=== PATIENT | female | born 2000 | race Caucasian/White ===

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

== ENCOUNTER → 2023-02-25 07:49 | Outpatient (CLI) | payer BC, SELFPAY ==
--- NOTE | ~2023-02-25 | US_ITS ---
Limited Abdominal Sonogram: Real-time sonographic imaging of the right upper quadrant was performed. Clinical History: Abdominal pain Findings: The liver appears normal with no evidence of mass lesion or bile duct dilatation. Main por kali vein demonstrates normal direction of flow. The gallbladder is well distended, and appears normal with no evidence of gallstone or wall thickening. The common bile duct measures 4 mm. The visualize d pancreas, aorta, and IVC are unremarkable. Impression: No significant abnormality seen. Reviewed, dictated and finalized at location . Impression: No significant abnormality seen.
== END ==
PROVIDERS: PCP Nurse Practitioner Family; Visit Provider Nurse Practitioner Family
DX: R10.11 Right upper quadrant pain (principal)
CPT/HCPCS: 76705

== ENCOUNTER 2025-03-22 12:47 | Emergency (ER) | payer BC, SELFPAY ==
--- OUTSIDE RECORDS SUMMARY | 2024-01-16 16:30 | XMS_ITS ---
Author Organization [facility] ([address]) Address [address] [place] [address] Care Team Providers Care Buckshot Swage Operator Name Role Phone Cata Clark Primary Care Provider Cande Heidy Villa Unavailable [phone] [facility], Provider Unavailable Unavailab le Allergies Allergen (clinical drug ingredient) Drug/Non Drug Allergy documented on EMR Reaction Allergy Type Onset Date Status azithromycin Azithromycin hives on chest and abdomen after taking for a few days Drug Allergy Active omeprazole PriLOSEC hives the same day Drug Allergy Active REASON FOR VISIT [facility] To [facility] Conversion Encounter Medications Medication SIG (Take, Route, Frequency, Duration) Notes Start Date End Date Status Prazosin HCl 1 MG 1 cap(s) orally 3 times a day; Duration: 30 day(s) takes one capsule @ HS Active Rizatriptan Benzoate 5 MG 1 tab(s) orally once a day uses PRN Active FLUoxetine HCl 20 MG 1 cap(s) orally onc e a day; Duration: 30 day(s) Active Verapamil HCl 40 MG 1 tab(s) orally 3 times a day; Duration: 30 day(s) one pill daily Active Encounters Encounter Location Date Provider Diagnosis [facility] [place] [address] 01/16/2024 Provider ZZ-Migration Plan Of Treatment No Information Progress Notes * Olinda FORTEOB:[birth year] (24 yo F)Acc No.[id number]:01/16/2024 Patient: Joanie VIEYRA Provider: Mary Ledesma :2000 A ge:23 Y S ex:Female Date:01/16/2024 Address:[address], [place], [id number] Pcp:Cata Davidson, ANP-BC Subjective: * Chief Complaints: * [facility] * Medical History: * Medications: T aking Prazosin HCl 1 MG Capsule 1 cap(s) orally 3 times a day , Notes to Pharmacist: takes one capsule @ HS, Taking FLUoxetine HCl 20 MG Capsule 1 cap(s) orally once a day , Taking Verapamil HCl 40 MG Tablet 1 tab(s) orally 3 times a day , Notes to Pharmacist: one pill daily, Taking Rizatriptan Benzoate 5 MG Tablet 1 tab(s) orally once a day , Notes to Pharmacist: uses PRN * Allergies: A zithromycin: hives on chest and abdomen after taking for a few days, PriLOSEC: hives the same day. Objective: * Vitals: Assessment: Plan: * Treatment: * Billing Information: * Visit Code: * Procedure Codes: * Electronic signature of Prov jaimer [facility]-Migration on 03/22/2025 at 01:56 PM CDT Sign off status: Pending * Provider: Mary Ledesma Date: 01/16/2024 Generated for Neris huggins/Steve/Kannan on: 0 03/22/2025 01:56 PM CDT
--- OUTSIDE RECORDS SUMMARY | 2024-03-09 10:40 | XMS_ITS ---
Author Organization [facility] ([address]) Address [address] [place] [address] Care Team Providers Care Prop Cutter Name Role Phone Cata Clark Primary Care Provider Cande Heidy Villa Unavailable [phone] Cheng Reyes [phone] Encounters Encounter Location Date Provider Diagnosis [address] [place] [address] 03/09/2024 Cheng Reyes Plan Of Treatment No Information Progress Notes * Olinda FORTEOB:[birth year] (24 yo F)Acc No.[id number]:03/09/2024 [facility]-Aeroallergen Patient: Joanie VIEYRA Provider: Mray Reyes MD :2000 A ge:23 Y S ex:Female Date:03/09/2024 Address[address], [id number] Pcp:EDY Watson Subjective: * Chief Complaints: * * Medical History: Objective: * Vitals: Assessment: Plan: * Treatment: * Billing Information: * Visit Code: * Procedure Codes: * Electronic signature of Luann Reyes MD, FAAAAI on 03/22/2025 at 12:55 PM CDT Sign off status: Pending * Provider: Mary Reyes MD Date: 0 03/09/2024 Generated for Neris huggins/Steve/Elidaitting on: 0 03/22/2025 12:55 PM CDT
--- OUTSIDE RECORDS SUMMARY | 2025-03-22 12:56 | XMS_ITS | Clinical Summary ---
Author Organization [facility] Address [address] [place] [address] Phone Care Team Providers Care Minute Clerk For Basic Traffic Name Role Phone Unavailable Primary Care Provider Unavailabl e Allergies Active Allergy Reactions Criticality Noted Date Comments Azithromycin Hives High 03/29/2018 Latex Rash Low 06/11/2022 Metoclopramide Hcl Other (See Comments) Low 024 akathisia Omeprazole Hives,Rash High 05/13/2018 Prochlorperazine Other (See Comments) 4 Akathisia Medications levonorgestreL (MIRENA) 20 mcg/24 hours (8 yrs) 52 mg IUD 1 Active rimegepant (Nurtec ODT) 75 mg Tablet, Rapid Dissolve Take 1 Tablet (75 mg) by mouth 1 time daily as needed for Pain. 8 Tablet 3 4 Active FLUoxetine (PROzac) 40 mg capsule Take 20 mg by mouth daily. 4 Active atogepant (Qulipta) 60 mg Tablet Take 1 Tablet (60 mg) by mouth daily. 30 Tablet 5 4 Active Additional Information Patient not taking.Reported on 03/07/2025 magnesium oxide 400 mg magnesium Capsule Take 400 mg by mouth daily at bedtime. Active cholecalciferol , vitamin D3, 5,000 unit Take 5,000 Units by mouth daily at bedtime. Active ondansetron (ZOFRAN ODT) 4 mg Tablet, Rapid Dissolve Take 1 Tablet (4 mg) by mouth every 8 hours as needed for Nausea/Emesis. 20 Tablet 5 5 Active Hospital, Clinic, or Other Facility Administered Medication Ordered Dose Route Frequency Start Date End Date Status onabotulinumtoxinA (BOTOX) injection 200 UnitsIndications:Ch ronic migraine w/o aura w/o status migrainosus, not intractable 200 Units Intradermal EVERY 90 DAYS 10/28/2023 Active Active Problems Problem Noted Date Diagnosed Date Status migrainosus 05/05/2024 Migraine aura, persistent, intractable 4 Other specified congenital deformities of hip Tear of right acetabular labrum 02/29/2024 Allergic contact dermatitis due to adhesives 01/2022 Chronic rhinitis 07/09/2022 Migraine with aura and witho ut status migrainosus, not intractable 04/28/2022 Chronic tension-type headache, not intractable 0 04/28/2022 PTSD (post-traumatic stress disorder) 01/01/2022 COVID-19 08/20/2021 Degenerative tear of acetabular labrum of right hip 05/21/2021 Overview (10/13/2022): Added automatically from request for surgery [id number] Right hip pain 05/21/2021 Overview (01/20/2023): Added automatically from request for surgery [id number] Last Assessment & Plan: Hx hip dysplasia, dx [address] 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 Overview (01/20/2023): Added automatically from request for surgery [id number] Periumbilical abdominal pain 05/01/2018 Palpitations Encounters Date Type Department Care Team Description 03/08/2025 External Device Data STL ABSTRACTION Provider, Abstract 03/08/2025 Results Follow-Up [facility] [place] [place] [id number] [address] Abbey Cotton, JUSTICE VAGINOSIS/VAGINITIS PANEL PLUS 03/07/2025 4:00 PM CDT Office Visit [facility] [address] [facility] [address] [place] [id number] Abbey Cotton NP Vaginal discharge (Primary Dx); Routine screening for STI (sexually transmitted infection); Vaginal dryness 02/15/2025 External Device Data STL ABSTRACTION Provider, Abstract 01/10/2025 External Device Data STL ABSTRACTION Provider, Abstract 01/06/2025 10:00 AM CDT Procedure visit [facility] [address] [facility] [address] [place] [address] Velvet Card NP Chronic migraine w/o aura w/o status migrainosus, not intractable (Primary Dx); Migraine with aura and without status migrainosus, not intractable 01/02/2025 Telephone [facility] [address] [address] [facility] [address] [place] [address] Velvet Card NP Botox converstation ins 12/30/2024 Telephone [facility] [address] [address] [facility] [address] [place] [address] Velvet Card, JUSTICE Med Refill 12/23/2024 External Device Data STL ABSTRACTION Provider, Abstract from Last 3 Months Immunizations Immunization Administration Dates Next Due (ACTHIB/HIBERIX)(2 MOS-5 YRS /6 WKS-4 YRS) HAEMOPHILUS INFLUENZAE TYPE B VACCINE (HIB), PRP-T CONJUGATE, 4 DOSE, 0.5 ML IM 04/28/2003,05/10/2002,03/14/2002,01/10 (ADACEL/BOOSTRIX)(10 YR UP) TDAP VACCINE, 0.5ML, IM 02/13/2023,02/17/2020,04/06/2013 (DAPTACEL)(6 WKS-6 YRS) DIPH THERIA, TETANUS TOXOIDS, AND ACCELLULAR PERTUSSIS VACCINE (DTAP), 0.5ML, IM 11/09/2006,04/28/2003,05/10/2002,03/14,01/10/2002 (GARDASIL 9)(9-45 YRS) HUMAN PAPILLOMAVIRUS VACCINE, TYPES 6, 11, 16, 18, 31, 33, 45, 52, 58, NONAVALENT (9VHPV), 2 OR 3 DOSE, IM 01/10/2016,08/22/2015 (GARDASIL)(9-45 YRS) HUMAN PAPILLOMAVIRUS VACCINE, TYPES 6, 11, 16, 18, QUADRIVALENT (4VHPV), 3 DOSE, IM 07/17/2014,07/07/2014 (HAVRIX/VAQTA)(12 MO-18 YRS) HEPATITIS A VACCINE 0.5 ML PED/ADOL 2 DOSE, IM 08/22/2015,07/07/2014 (IPOL)(6 WKS AND UP) POLIOVI SVETLANA VACCINE, INACTIVATED (IPV), 3 DOSE, SUBCUT OR IM 02/17/2020,11/09/2006,01/27/2003,03/14,01/10/2002 (M-M-R II/PRIORIX)(12 MO UP) MEASLES, MUMPS AND RUBELLA VIRUS VACCINE, 0.5 ML IM/SUBCUT 11/09/2006,11/14/2002 (MENACTRA)(9 MO-55 YR) MENIN GOCOCCAL POLYSACCHARIDE A, C, Y AND W-135 DIPTHERIA TOXOID CONJUGATE VACCINE, (PF), 0.5ML, IM 02/17/2020,03/07/2019,07/17/2014 (PREVNAR 13)(6 WKS UP) PNEUM OCOCCAL CONJUGATE (PCV13) 0.5 ML, IM 11/14/2002,07/11/2002,05/10/2002,02/11 (RECOMBIVAX HB/ENGERIX-B)(0- 19 YRS) HEPATITIS B VACCINE 5 MCG/0.5 ML OR 10 MCG/0.5 ML PED OR ADOL 3 DOSE (PF), IM 02/22/2020,08/11/2002,2001,11/02 (VARIVAX)(12 MOS UP)VARICELL A VIRUS VACCINE (PF) 0.5 ML, SUB CUT 02/22/2020,11/09/2006,05/29/2003,01/27 Adenovirus Vaccine Type 4 02/22/2020 Hepatitis A Vaccine, Unspeci fied Formulation 07/17/2014 INFLUENZA VACCINE QUADRIVALE NT 6 MOS UP CELL DERIVED PF IM 05/26/2022 INFLUENZA VACCINE TRIVALENT SPLIT VIRUS, (6 MOS UP), 0.5ML (PF), IM 05/11/2024 Influenza Seasonal Unspecifi ed Formulation IM 05/15/2023,06/13/2021 Family History Medical History Relation Name Comments Defects Brother 1 Edwin AV canal defec t Thyroid Disease Brother 1 Edwin Hypothyroidi sm Defects Brother 2 Edwin AV canal defec t Thyroid Disease Brother 2 Edwin Hypothyroidi sm Headaches Maternal Grandmother Camryn Anxiety Mother Adrianna Depression Mother Adrianna Headaches Mother Adrianna Hypertension Mother Adrianna Thyroid Disease Mother Adrianna Hypothyroidi sm Relation Name Status Comments Brother 1 Edwin Brother 2 Edwin Alive Maternal Grandmother Camryn Alive Mother Adrianna Alive Social History Tobacco Use Types Packs/Day Years Used Date Smoking Tobacco: Never Smokeless Tobacco: Never Tobacco Cessation:Counseling Given: Not Answered Alcohol Use Standard Drinks/Week Comments Yes 3 (1 standard drink = 0.6 oz pur e alcohol) Comments No Sex and Gender Information Value Date Recorded Sex Assigned at Not on file Legal Sex Female 9:34 AM CDT Gender Identity Not on file Sexual Orientation Not on file Last Filed Vital Signs Vital Sign Reading Time Taken Comments Blood Pressure 124/70 03/07/2025 3:46 PM CDT Pulse 83 01/06/2025 10:03 AM CDT Temperature 37.7 C (99.8 F) 05/11/2024 3:54 PM CDT Respiratory Rate 18 05/11/2024 3:54 PM CDT Oxygen Saturation 96% 01/06/2025 10:03 AM CDT Inhaled Oxygen Concentration - - Weight 84 kg (185 lb 3.2 oz) 03/07/2025 3:46 PM CDT Height 167.6 cm (5' 6) 03/07/2025 3:46 PM CDT Body Mass Index 29.89 03/07/2025 3:46 PM CDT Plan of Treatment Upcoming Encounters Date Type Department Care Team (Late st Contact Info) Description 03/23/2025 11:00 AM CDT Office Visit [facility] [address] [address] [facility] [address] [place] [address] Kaylah Alcazar MD [address] [facility] [address] [place] [address] 03/31/2025 2:00 PM CDT Procedure visit [facility] [address] [facility] [address] [place] [address] Velvet Card, JUSTICE [address] [facility] [address] [place] [address] 06/23/2025 10:00 AM BRUSH OR BROOM CUTTER Procedure visit [facility] [address] [facility] [address] [place] [address] Carmella Curry, ABEL [address] [facility] [address] [place] [address] 10/16/2025 9:15 AM CDT Office Visit [facility] [address] [facility] [address] [place] [address] Abbey Cotton, JUSTICE [address] [facility] [address] [place] [address] Health Maintenance Due Date Last Done Comments HPV/Cotest (21-) 2022 INFLUENZA VACCINE (#1) 2025 , 05/15/2023, 05/26/2022, Additional history exists CHLAMYDIA SCREENING (ANNUAL) 11-24 YEARS 03/07/2026 03/07/2025 CERVICAL CANCER SCREENING 10/08/2026 PAP SMEAR 10/08/2026 10/09/2023 DTAP/TDAP/TD VACCINES (9 - T d or Tdap) 02/13/2033 02/13/2023, 02/17/2020, 04/06/2013, Additional history exists HPV VACCINES Completed 01/10/2016, 08/04, 07/17/2014, Additional history exists HEPATITIS B VACCINES Completed 02/22/2020, 08/11/2002, 2001, Additional history exists COVID-19 Vaccine Completed 04/18/2024, , 05/02/2021 Procedures Procedure Name Priority Date/Time Associated Diagnosis Comments VAGINOSIS/VAGINITIS PANEL PLUS Routine 03/07/2025 4:14 PM CDT Vaginal discharge Routine screening for STI (sexually transmitted infection) [place] CHEMODERVATE FACIAL/TRIGEM/CERV MUSC MIGRAINE Routine 01/06/2025 10:34 AM CDT Chronic migraine w/o aura w/o status migrainosus, not intractable CERV/VAG CYTO AGE BASED SCREEN PAP W CT/NG, TRICH Routine 10/09/2023 10:01 AM BRUSH OR BROOM CUTTER Encounter for gynecological examination without abnormal finding from Last 3 Months or Most Recently Relevant to Health Maintenance Results * VAGINOSIS/VAGINITIS PANEL PLUS (03/07/2025 4:14 PM CDT) BACTERIAL VAGINOSIS NEGATIVE NEGATIVE [facility] TOSIN SPECIES NOT DETECTED NOT DETECTED [facility] TOSIN GLABRATA NOT DETECTED NOT DETECTED [facility] Comment: Tosin species C. albicans, C. tropicalis, C. parapsilosis, and/or C. dubliniensis can be detected, but not differentiated, in the Tosin spp. result. TRICHOMONAS VAGINALIS (TV), TMA NOT DETECTED NOT DETECTED [facility] CHLAMYDIA TRACHOMATIS RNA, TMA, UROGENITAL NOT DETECTED NOT DETECTED [facility] NEISSERIA GONORRHOEAE RNA, TMA, UROGENITAL NOT DETECTED NOT DETECTED [facility] Comment: For additional information, please refer to https://education.Fundación Bases/faq/CHW846 (This link is being provided for information/ educational purposes only.) Test Performed at: [email or web address] [address] [place] [address] Gisele Maloney MD Genital SPECIMEN FROM VAGINA / Unknown 03/07/2025 4:14 PM CDT 03/08/2025 5:57 AM CDT Abbey Cotton NP MICROBIOLOGY - GENERAL ORDERABLES Final Result [facility] [phone] [facility] [address] [place] [address] * [place] CHEMODERVATE FACIAL/TRIGEM/CERV MUSC MIGRAINE (01/06/2025 10:34 AM CDT) Narrative Velvet Card NP - 01/06/2025 10:34 AM CDT Velvet Card NP 01/06/2025 10:38 AM Botox Procedure Note Patient: Joanie Forte / 24 y.o. / female : 2000 BP 112/68 (BP Location: Left arm, Patient Position (BP): Sitting, BP Cuff Size: Adult) Pulse 83 SpO2 96% Procedure Performed: Botox for Chronic Migraine without Aura Date of Service: 01/06/2025 Provider: Velvet Card NP Medical Necessity for Procedure: This patient has a history of intractable headache present for 15 or more days per month, at least 8 of which lasting for more than 4 hours a day and meeting migraine criteria for at least 3 months. They have tried at least 2 migraine prophylaxis medications. It is medically necessary to proceed with Botulinum toxin A injections per PREEMPT protocol in order to optimize this patient's treatment plan that will result in improved level of functioning and quality of life. Past Medical History: Past Medical History: Diagnosis Date Anemia February 2020 Anxiety 2018 COVID-19 virus detected 08/20/2021 08/20/2021 Depression December 2021 (PTSD)- resolved Migraine with aura 2020 Patient denies relevant medical history Supporting Evidence for the Treatment's Effectiveness: BOTOX was evaluated in two randomized, multi-center, 24-week, 2 injection cycle, placebo-controlled double-blind studies. Study 1 and Study 2 included chronic migraine adults who were not using any concurrent headache prophylaxis, and during a 28-day baseline period had >15 headache days lasting 4 hours or more, with >50% being migraine/probable migraine. In both studies, patients were randomized to receive placebo or 155 Units to 195 Units BOTOX injections every 12 weeks for the 2-cycle, double-blind phase. Patients were allowed to use acute headache treatments during the study. BOTOX treatment demonstrated statistically significant and clinically meaningful improvements from baseline compared to placebo for smith efficacy variables (see Table 31). Patients treated with BOTOX had a significantly greater mean decrease from baseline in the frequency of headache days at most timepoints from Week 4 to Week 24 in Study 1 (Figure 11), and all timepoints from Week 4 to Week 24 in Study 2 (Figure 12), compared to placebo-treated patients. Diagram of Injection sites: Procedure Details: The patient was educated about the risks and benefits of the procedure prior to starting. The patient signed a form showing they received informed consent. Then the patient was given Botox as follows: OnabotulinumtoxinA-Botox 200 units (lot # [id number]; expiration 05/29 ) was reconstituted using 4 ml preservative free saline to a final concentration of 50 units/ml. Using 1 ml syringes with 30 gauge 0.5 inch needles, and aseptic technique, Botox was administered as follows: Muscle # units Right # of inj sites Right # units Left # of inj sites Left Total units De Icer Finisher 5 1 5 1 10 Procerus 5 Frontalis 10 2 10 2 20 Temporalis 20 4 20 4 40 Occipitalis 15 3 15 3 30 Cervical Paraspinal 10 2 10 2 20 Trapezius 15 3 15 3 30 TOTAL units injected 155 Units wasted 45 Each injection was preceded by negative aspiration for blood. Patient tolerated the procedure well. Post-injection care instructions reviewed and patient discharged in good and stable condition. Medications Administered This Visit: Administrations This Visit onabotulinumtoxinA (BOTOX) injection 155 Units Admin Date 01/06/2025 Action Given Dose 155 Units Route IM Documented By Velvet Card NP sodium chloride bacteriostatic 0.9 % injection 2-4 mL Admin Date 01/06/2025 Action Given Dose 4 mL Route See Admin Instructions Documented By Velvet Card NP Were there any complications during this procedure or following previous Botox procedures for Chronic Migraine?: No Treatment Plan: Continue Botox every 12 weeks Follow up assessment will be scheduled with Dr. Alcazar 03/2025 Velvet Card NP Velvet Card NP PROCEDURE/MINOR MOTT RGICAL ORDERABLES Final Result * CERV/VAG CYTO AGE BASED SCREEN PAP W CT/NG, TRICH (10/09/2023 10:01 AM BRUSH OR BROOM CUTTER) COMMENT (PAP): [facility] Comment: This order for age-based cervical cancer and STI screening follows ACOG guidelines(PB 168, 140, AAH160). See individual assays for performing site location. CLINICAL INFORMATION [facility] Comment:SCREENNING LAST MENSTRUAL PERIOD [facility] Comment:NONE GIVEN PREV PAP: [facility] Comment:NONE GIVEN PREV BX: [facility] [place] Comment:NONE GIVEN SOURCE [facility] Comment:Endocervix ADEQUACY: [facility] Comment: Satisfactory for evaluation. Endocervical/transformation zone component present. Age and/or menstrual status not provided PAP INTERP [facility] Comment: Cytology Results: Negative for intraepithelial lesion or malignancy. CYTOLOGY INFECTION [facility] Comment: Fungal organisms morphologically consistent with Tosin spp. COMMENT (PAP TEST) [facility] [place] Comment: This Pap test has been evaluated with computer assisted technology. SPRING TACKER: Tessa [facility] [place] Comment: PORTER CT(ASCP) CT screening location: [place] [address] [address] REVIEW SPRING TACKER: Ovidio [place] Comment: LISE COSTELLO(ASCP) CT screening location: [place] [address] [place] [address] EXPLANATORY NOTE [facility] [place] Comment: EXPLANATORY NOTE: The Pap is a screening test for cervical cancer. It is not a diagnostic test and is subject to false negative and false positive results. It is most reliable when a satisfactory sample, regularly obtained, is submitted with relevant clinical findings and history, and when the Pap result is evaluated along with historic and current clinical information. C TRAC RNA NOT DETECTED NOT DETECTED [facility] N.GONORRHOEAE RNA, TMA NOT DETECTED NOT DETECTED [facility] COMMENT INFECTIOUS DISEASE [facility] Comment: The analytical performance characteristics of this assay, when used to test SurePath(TM) specimens have been determined by [facility]. The modifications have not been cleared or approved by the FDA. This assay has been validated pursuant to the CLIA regulations and is used for clinical purposes. For additional information, please refer to https://Mu Dynamics.[employer]/faq/AWQ109 (This link is being provided for information/ educational purposes only.) TRICHOMONAS VAGINALIS,QUALITAT ANGELY,PAP VIAL NOT DETECTED NOT DETECTED [facility] Comment: The analytical performance characteristics of this assay have been determined by [facility]. The modifications have not been cleared or approved by the FDA. This assay has been validated pursuant to the CLIA regulations and is used for clinical purposes. For additional information, please refer to http://[employer]/ faq/Trichomonastma (This link is being provided for information/ educational purposes only.) Test Performed at: [facility] [address] [facility] [place] [address] Gisele CAO Genital SWAB OF ENDOCERVIX / Unknown 10/09/2023 10:01 AM BRUSH OR BROOM CUTTER 10/12/2023 4:42 AM CDT Abbey Cotton NP PATHOLOGY/CYTOLOGY ZACARIAS LOMBARDI Final Result [facility] [phone] [facility] [address] [place] [address] from Last 3 Months or Most Recently Relevant to Health Maintenance Insurance BCBS OUT OF STATE RX [employer] Commercial RX [employer] Commercial Advance Directives For more information, please contact: [phone] * Full Code (Latest Code Status on File) Date Activated Date Inactivated Comments 05/04/2024 11:26 AM 05/11/2024 8:23 PM * Full Code Date Activated Date Inactivated Comments 05/07/2018 9:45 AM 05/07/2018 2:39 PM
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
--- OUTSIDE RECORDS SUMMARY | 2025-03-22 12:56 | XMS_ITS | Clinical Summary ---
Author Organization [facility] Address [address] [place] [address] Care Team Providers Care Tunnel Kiln Firer Name Role Phone Yolanda Chapin FINISHER CARD TENDER Primary Care Provider [phone] Allergies Active Allergy Reactions Criticality Noted Date Comments Azithromycin Hives 03/31/2019 Latex Rash Low 01/17/2023 Omeprazole Hives 03/31/2019 Medications FLUoxetine (PROZAC) 20 MG capsule Take 30 mg by mouth daily. Active prazosin (MINIPRESS) 1 MG capsule Take 1 capsule (1 mg total) by mouth nightly at bedtime. Active Social History Tobacco Use Types Packs/Day Years Used Date Smoking Tobacco: Never Smokeless Tobacco: Never Alcohol Use Standard Drinks/Week Comments No 0 (1 standard drink = 0.6 oz pur e alcohol) AUDIT-C Answer Date Recorded Frequency of Alcohol Consumption Never 03/31/2019 Average Number of Drinks Not on file 019 Frequency of Binge Drinking Not on file 03/04 Comments No Sex and Gender Information Value Date Recorded Sex Assigned at Not on file Legal Sex Female 7:51 PM CDT Gender Identity Not on file Sexual Orientation Not on file Last Filed Vital Signs Vital Sign Reading Time Taken Comments Blood Pressure 120/62 01/17/2023 7:29 PM CDT Pulse 80 01/17/2023 7:29 PM CDT Temperature 36.9 C (98.5 F) 01/17/2023 7:29 PM CDT Respiratory Rate 16 01/17/2023 5:22 PM CDT Oxygen Saturation 98% 01/17/2023 7:29 PM CDT Inhaled Oxygen Concentration - - Weight 72.6 kg (160 lb) 01/17/2023 5:22 PM CDT Height 167.6 cm (5' 6) 01/17/2023 5:22 PM CDT Body Mass Index 25.82 01/17/2023 5:22 PM CDT Plan of Treatment Health Maintenance Due Date Last Done Comments Cervical Cancer Screening Pap Smear (Age 21 to 29) Every 3 Years 2001 Cervical Cancer Screening 2001 Annual Physical 2004 Meningococcal B Vaccine (1 of 2 - Standard) 2017 Hepatitis C 11/03/2019 DTaP, Tdap and Td Vaccines (7 - Td or Tdap) 04/06/2023 04/06/2013, 11/09/2006, 04/28/2003, Additional history exists COVID-19 Vaccine () 04/03/2024 Hepatitis B Vaccines Completed 08/11/2002, 2001, 2001 Pneumococcal Vaccine: Pediatrics (0 to 5 Years) and At-Risk Patients (6 to 49 Years) Completed 11/14/2002, 07/11/2002, 05/10/2002, Additional history exists HPV Vaccines Completed 01/10/2016, 08/04, 07/17/2014, Additional history exists Meningococcal Vaccine Completed 03/07/2019, 014 RSV Immunizations Under 20 Months Aged Out No longer eligible based on patient's age to complete this topic Insurance [facility] Care Teams Tunnel Kiln Firer Relationship Specialty Start Date End Date Yolanda Chapin FNP PCP - General Nurse Practitioner Family 01/17/23
--- OUTSIDE RECORDS SUMMARY | 2025-03-22 12:56 | XMS_ITS | Patient Health Record ---
Author Organization [facility] [place] ([address]) Address [address] [place] [address] Care Team Providers Care Ice Rink Attendant Name Role Phone Cata Clark Primary Care Provider Heidy Martinez Unavailable [phone] Allergies Allergen (clinical drug ingredient) Drug/Non Drug Allergy documented on EMR Reaction Allergy Type Onset Date Status azithromycin Azithromycin hives on chest and abdomen after taking for a few days Drug Allergy Active omeprazole PriLOSEC hives the same day Drug Allergy Active Reason For Referral No Information Medications Medication SIG (Take, Route, Frequency, Duration) Notes Start Date End Date Status Prazosin HCl 1 MG 1 cap(s) orally 3 times a day; Duration: 30 day(s) takes one capsule @ HS Active RIZATRIPTAN 5 mg 1 tab(s) orally once a day uses PRN Active VERAPAMIL 40 mg 1 tab(s) orally 3 times a day; Duration: 30 day(s) one pill daily Active FLUOXETINE 20 mg 1 cap(s) orally once a day; Duration: 30 day(s) Active PRAZOSIN 1 mg 1 cap(s) orally 3 times a day; Duration: 30 day(s) takes one capsule @ HS Active Rizatriptan Benzoate 5 MG 1 tab(s) orally once a day uses PRN Active FLUoxetine HCl 20 MG 1 cap(s) orally onc e a day; Duration: 30 day(s) Active Verapamil HCl 40 MG 1 tab(s) orally 3 times a day; Duration: 30 day(s) one pill daily Active Problems Problem Type SNOMED Code ICD Code Onset Dates Problem Status W/U Status Risk Notes Problem Chronic rhinitis (43238182) Chronic rhinitis (J31.0) Active confirmed Problem Allergic contact dermatitis caused by adhesive (disorder) (939591084) Allergic contact dermatitis due to adhesives (L23.1) Active confirmed Problem 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) (6209160655) Latex allergy status (Z91.040) Active confirmed Problem Allergy status to other antibiotic agents (Z88.1) Active confirmed Plan Of Treatment Pending Test Test Name Order Date LATEX (K82) IGE 05/22/2022 Insurance Providers Payer Name Payer Address Payer Phone Subscriber Number Group Number Insured Name Patient Relationship to Insured Coverage Start Date Coverage End Date [place] [address] [place] [address] [id number] Ruddy Forte Child - Insured has Financial Responsibility Medical (General) History Medical History History ICD Code migraines anxiety PTSD/insomnia Surgical History Surgery Date(Month/Year) Tonsillectomy/adenoidectomy 07/03/2004 [place] teeth extraction 08/05/2015 Left hip arthroscopy 12/03/2020 Right hip arthroscopy 10/07/2021
--- OUTSIDE RECORDS SUMMARY | 2025-03-22 12:56 | XMS_ITS | Clinical Summary ---
Author Organization [facility] Address [address] [facility] [place] [address] Care Team Providers Care Geophysical Data Technician Name Role Phone Unavailable Primary Care Provider Unavailabl e Source Comments [email or web address],non-owned Affiliates and Associated Physician Practices is amultiple site organization consisting of ambulatory clinics and hospital sitesin [place], [place], [place]. This disclosure is being madepursuant to the Care Everywhere program and may not contain all information available regarding this patient. Last updated 18.[email or web address] Social History Tobacco Use Types Packs/Day Years Used Date Smoking Tobacco: Never Assessed Comments Unknown Sex and Gender Information Value Date Recorded Sex Assigned at Not on file Legal Sex Female 5:42 AM ARTERIAL EMBALMER Gender Identity Not on file Sexual Orientation Not on file Plan of Treatment Health Maintenance Due Date Last Done Comments HIV SCREENING 2016 HPV VACCINE (1 - 3-dose series) 2016 CHLAMYDIA/GONORRHEA SCREENING 2017 MENINGOCOCCAL (Group B) VACCINE SHARED DECISION-MAKING (1 of 2 - Standard) 2017 HEPATITIS C SCREENING 10/29/2019 DTAP/TDAP/TD VACCINES (1 - Tdap) 2020 HEPATITIS B VACCINE (1 of 3 - 19+ 3-dose series) 2020 PAP SMEAR 2022 COVID-19 VACCINE (1 - 2023- season) 2024 DEPRESSION SCREENING 08/03/2024 INFLUENZA VACCINE (#1) 2025 , 05/15/2023, 05/26/2022, Additional history exists ZOSTER VACCINE (1 of 2) 11/03/2051 HIB VACCINE Aged Out No longer eligi ble based on patient's age to complete this topic MENINGOCOCCAL GROUPS A/C/Y/W VACCINE Aged Out No longer eligible based on patient's age to complete this topic PNEUMOCOCCAL VACCINE Aged Out No long er eligible based on patient's age to complete this topic
--- NOTE | 2025-03-22 13:33 | PC.NURSE ---
Patient reporting that she took her migraine medication and her symptoms are resolving-she also has an appointment with her Neurologist tomorrow so she is going home now
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
--- OUTSIDE RECORDS SUMMARY | 2025-03-22 13:56 | XMS_ITS | Clinical Summary ---
Author Organization [facility] Address [address] [place] [address] Care Team Providers Care Piano Teacher Name Role Phone Yolanda Chapin PREPARED FOODS ASSOCIATE Primary Care Provider [phone] Allergies Active Allergy Reactions Criticality Noted Date [...] patient's age to complete this topic Insurance [facility] Care Teams Piano Teacher Relationship Specialty Start Date End Date Yolanda Chapin FNP PCP - General Nurse Practitioner Family 01/17/23
--- OUTSIDE RECORDS SUMMARY | 2025-03-22 13:57 | XMS_ITS | Clinical Summary ---
Author Organization [facility] Address [address] [place] [address] Care Team Providers Care Ergonomics Engineer Name Role Phone Unavailable Primary Care Provider Unavailabl e Source Comments [facility],non-owned Affiliates and Associated Physician Practices is amultiple site organization consisting of ambulatory clinics and hospital sitesin [place], [place], [place] and [place]. This disclosure is being madepursuant to the Care Everywhere program and may not contain all information available regarding this patient. Last updated 18.[facility] Social History Tobacco Use Types Packs/Day Years Used Date Smoking Tobacco: Never Assessed Comments Unknown Sex and Gender Information Value Date Recorded Sex Assigned at Not on file Legal Sex Female 5:42 AM SEPTIC PUMP TRUCK DRIVER Gender Identity Not on file Sexual Orientation [...]
--- OUTSIDE RECORDS SUMMARY | 2025-03-22 13:57 | XMS_ITS | Clinical Summary ---
Author Organization [facility] Address [address] [place] [address] Phone Care Team Providers Care Machine Set Up Technician Name Role Phone Unavailable Primary Care [...] (10/13/2022): Added automatically from request for surgery [id number] Right hip pain 05/21/2021 Overview (01/20/2023): Added automatically from request for surgery [id number] Last Assessment & Plan: Hx hip dysplasia, dx [address] 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 Overview (01/20/2023): Added automatically from request for surgery [id number] Periumbilical abdominal pain 05/01/2018 Palpitations Encounters Date Type Department Care Team Description 03/08/2025 External Device Data STL ABSTRACTION Provider, Abstract 03/08/2025 Results Follow-Up [facility] [place] [id number] [address] Abbey Cotton, JUSTICE VAGINOSIS/VAGINITIS PANEL PLUS 03/07/2025 4:00 PM CDT Office Visit [facility] [address] [facility] [address] [place] [address] Abbey Cotton NP Vaginal discharge (Primary Dx); Routine screening for STI (sexually transmitted infection); Vaginal dryness 02/15/2025 External Device Data STL ABSTRACTION Provider, Abstract 01/10/2025 External Device Data STL ABSTRACTION Provider, Abstract 01/06/2025 10:00 AM CDT Procedure visit [facility] [address] [address] [facility] [address] [place] [address] Velvet Card NP Chronic migraine w/o aura w/o status migrainosus, not intractable (Primary Dx); Migraine with aura and without status migrainosus, not intractable 01/02/2025 Telephone [facility] [address] [facility] [address] [place] [address] Velvet Card NP Botox converstation ins 12/30/2024 Telephone [facility] [address] [facility] [address] [place] [address] Velvet Card, JUSTICE Med Refill 12/23/2024 External [...] Description 03/23/2025 11:00 AM CDT Office Visit [facility] [address] [facility] [address] [place] [address] Kaylah Alcazar MD [address] [facility] [address] [place] [address] 03/31/2025 2:00 PM CDT Procedure visit [facility] [address] [facility] [address] [place] [address] Velvet Card, JUSTICE [address] [facility] [address] [place] [address] 06/23/2025 10:00 AM MANUFACTURER Procedure visit [facility] [address] [facility] [address] [place] [address] Carmella Curry, ABEL [address] [facility] [address] [place] [address] 10/16/2025 9:15 AM CDT Office Visit [facility] [address] [facility] [address] [place] [address] Abbey Cotton, JUSTICE [address] [facility] [address] [place] [address] Health Maintenance Due Date Last [...] Routine screening for STI (sexually transmitted infection) ND CHEMODERVATE FACIAL/TRIGEM/CERV MUSC MIGRAINE Routine 01/06/2025 10:34 AM CDT Chronic migraine w/o aura w/o status migrainosus, not intractable CERV/VAG CYTO AGE BASED SCREEN PAP W CT/NG, TRICH Routine 10/09/2023 10:01 AM MANUFACTURER Encounter for gynecological examination without abnormal finding from Last 3 Months or Most Recently Relevant to Health Maintenance Results * VAGINOSIS/VAGINITIS PANEL PLUS (03/07/2025 4:14 PM CDT) BACTERIAL VAGINOSIS NEGATIVE NEGATIVE [facility] [place] TOSIN SPECIES NOT DETECTED NOT DETECTED [facility] [place] TOSIN GLABRATA NOT DETECTED NOT DETECTED [facility] [place] Comment: Tosin species C. albicans, C. tropicalis, C. parapsilosis, and/or C. dubliniensis can be detected, but not differentiated, in the Tosin spp. result. TRICHOMONAS VAGINALIS (TV), TMA NOT DETECTED NOT DETECTED [facility] [place] CHLAMYDIA TRACHOMATIS RNA, TMA, UROGENITAL NOT DETECTED NOT DETECTED [facility] [place] NEISSERIA GONORRHOEAE RNA, TMA, UROGENITAL NOT DETECTED NOT DETECTED [facility] Comment: For additional information, please refer to https://education.Nantero/faq/QBX516 (This link is being provided for information/ educational purposes only.) Test Performed at: [facility] [address] [place] [address] Gisele Maloney MD Genital SPECIMEN FROM VAGINA / Unknown 03/07/2025 4:14 PM CDT 03/08/2025 5:57 AM CDT bAbey Cotton NP MICROBIOLOGY - GENERAL ORDERABLES Final Result [facility] [phone] [facility] [address] [place] [address] * ND CHEMODERVATE FACIAL/TRIGEM/CERV MUSC MIGRAINE (01/06/2025 10:34 AM [...] as follows: OnabotulinumtoxinA-Botox 200 units (lot # [id number]; expiration 05/29 ) was reconstituted using 4 ml preservative free saline to a final concentration of 50 units/ml. Using 1 ml syringes with 30 gauge 0.5 inch needles, and aseptic technique, Botox was administered as follows: Muscle # units Right # of inj sites Right # units Left # of inj sites Left Total units [employer] 5 1 5 1 10 Procerus 5 [...] PAP W CT/NG, TRICH (10/09/2023 10:01 AM MANUFACTURER) COMMENT (PAP): [facility] [place] Comment: This order for age-based cervical cancer and STI screening follows ACOG guidelines(PB 168, 140, YJX677). See individual assays for performing site location. CLINICAL INFORMATION [facility] [place] Comment:SCREENNING LAST MENSTRUAL PERIOD [facility] [place] Comment:NONE GIVEN PREV PAP: [facility] [place] Comment:NONE GIVEN PREV BX: [facility] [place] Comment:NONE GIVEN SOURCE [facility] [place] Comment:Endocervix ADEQUACY: [facility] [place] Comment: Satisfactory for evaluation. Endocervical/transformation zone component present. Age and/or menstrual status not provided PAP INTERP [facility] [place] Comment: Cytology Results: Negative for intraepithelial lesion or malignancy. CYTOLOGY INFECTION [facility] [place] Comment: Fungal organisms morphologically consistent with Tosin spp. COMMENT (PAP TEST) [facility] [place] Comment: This Pap test has been evaluated with computer assisted technology. DELI MANAGER: [facility] Comment: PORTER CT(ASCP) CT screening location: [place] [address] [place] [address] REVIEW DELI MANAGER: Ovidio [place] Comment: LISE COSTELLO(ASCP) CT screening location: [place] [address] [place] [address] EXPLANATORY NOTE [facility] [place] Comment: EXPLANATORY NOTE: The Pap is a [...] C TRAC RNA NOT DETECTED NOT DETECTED [facility] [place] N.GONORRHOEAE RNA, TMA NOT DETECTED NOT DETECTED [facility] [place] COMMENT INFECTIOUS DISEASE [facility] [place] Comment: The analytical performance characteristics of this assay, when used to test SurePath(TM) specimens have been determined by [facility]. The modifications have not been cleared or approved by the FDA. This assay has been validated pursuant to the CLIA regulations and is used for clinical purposes. For additional information, please refer to https://[employer].Nantero/faq/CTX644 (This link is being provided for information/ educational purposes only.) TRICHOMONAS VAGINALIS,QUALITAT ANGELY,PAP VIAL NOT DETECTED NOT DETECTED [facility] [place] Comment: The analytical performance characteristics of this assay have been determined by [facility]. The modifications have not been cleared or approved by the FDA. This assay has been validated pursuant to the CLIA regulations and is used for clinical purposes. For additional information, please refer to http://[employer]tero/ faq/Trichomonastma (This link is being provided for information/ educational purposes only.) Test Performed at: [facility] [address] [facility] [place] [address] Gisele CAO Genital SWAB OF ENDOCERVIX / Unknown 10/09/2023 10:01 AM MANUFACTURER 10/12/2023 4:42 AM CDT Abbey Cotton NP PATHOLOGY/CYTOLOGY ZACARIAS LOMBARDI Final Result [facility] [phone] [facility] [address] [place] [address] from Last 3 Months or Most Recently Relevant to Health Maintenance Insurance BCBS OUT OF STATE RX [employer] Commercial RX [employer] Commercial Advance Directives For more information, please contact: [phone] * Full Code (Latest Code Status on File) Date Activated Date Inactivated Comments 05/04/2024 11:26 AM 05/11/2024 8:23 PM * Full Code Date Activated Date Inactivated Comments 05/07/2018 9:45 AM 05/07/2018 2:39 PM
== END 2025-03-22 14:56 | disposition left against medical advice (07) ==
PROVIDERS: PCP Nurse Practitioner Family
DX: Z53.21 Procedure and treatment not carried out due to patient leaving prior to being seen by health care provider (principal)
CPT/HCPCS: 99199